=== PATIENT | male | born 1950 | race Caucasian/White ===

== ENCOUNTER 2016-05-10 11:26 | Emergency (ER) | payer OTHER ==
[~2016-05-10] VITALS: Ht 167.6 cm; Wt 75.0 kg
[2016-05-10 11:27] VITALS: BP 138/80; PULSE 98; RESP 18; TEMP 97.8; O2SAT 93
--- NOTE | 2016-05-10 11:55 | PD ---
HPI Chief Complaint: Psychiatric Symptoms Time Seen by Provider: 11:55 Travel History International Travel<30 days: No Contact w/Intl Traveler<30days: No Traveled to known affect area: No History of Present Illness HPI 66-year-old male with history of depression and anxiety presents to the emergency department for evaluation. Patient is followed by Dr. Jarvis. He began increasing his Ziprasidone 2 weeks ago and began having twitching of his lower extremities. He states that the shaking has gotten out of control. He began weaning himself off of this medication. He went to Dr. Jarvis, his new psychiatrist yesterday who advised him to stop the medication and gave him Valium. Patient states that the lower extremity shaking has not stopped and he can no longer stand it. He states it is for left less and he does not want to hurt himself but he cannot tolerate this. It is causing him to have suicidal thoughts with no active plan. Patient states that he needs help. He contacted Dr. Wyatt's office and he was not in. No other symptoms to report at this time. [facility] Past Medical History Anxiety: Yes Depression: Yes Social History Alcohol Use: No Tobacco Use: No Substance Use: No Allergies-Medications (Allergen,Severity, Reaction): Coded Allergies: Penicillin (Verified Allergy, Intermediate, 05/10/16) Review of Systems Except as stated in HPI: all other systems reviewed are Neg Physical Exam Narrative GENERAL: Well-nourished male patient, seemingly anxious but in no acute distress SKIN: Warm and dry. HEAD: Atraumatic. Normocephalic. EYES: Pupils equal and round. No scleral icterus. No injection or drainage. ENT: No nasal bleeding or discharge. Mucous membranes pink and moist. NECK: Trachea midline. No JVD. CARDIOVASCULAR: Elevated rate and rhythm. No murmur appreciated. RESPIRATORY: No accessory muscle use. Clear to auscultation. Breath sounds equal bilaterally. GASTROINTESTINAL: Abdomen soft, non-tender, nondistended. Hepatic and splenic margins not palpable. MUSCULOSKELETAL: No obvious deformities. No clubbing. No cyanosis. No edema. Constant lower extremity shaking. NEUROLOGICAL: Awake and alert. No obvious cranial nerve deficits. Motor grossly within normal limits. Normal speech. PSYCHIATRIC: Bizarre affect Data Data Last Documented VS Vital Signs Date Time Temp Pulse Resp B/P Pulse Ox O2 Delivery O2 Flow Rate FiO2 3/1/17 11:27 97.8 98 18 138/80 93 Room Air Orders Complete Blood Count With Diff (05/10/16 11:48) Basic Metabolic Panel (Bmp) (05/10/16 11:48) Urinalysis - C+S If Indicated (05/10/16 11:48) Psych Screen (05/10/16 11:48) Drug Screen, Random Urine (05/10/16 11:48) Alcohol (Ethanol) (05/10/16 11:48) Iv Access Insert/Monitor (05/10/16 12:57) Diphenhydramine Inj (Benadryl Inj) (05/10/16 13:00) Labs Laboratory Tests Test 05/10/16 12:00 White Blood Count 8.0 TH/MM3 Red Blood Count 4.89 MIL/MM3 Hemoglobin 14.7 GM/DL Hematocrit 43.8 % Mean Corpuscular Volume 89.5 FL Mean Corpuscular Hemoglobin 30.0 PG Mean Corpuscular Hemoglobin 33.5 % Concent Red Cell Distribution Width 13.6 % Platelet Count 211 TH/MM3 Mean Platelet Volume 9.1 FL Neutrophils (%) (Auto) 78.6 % Lymphocytes (%) (Auto) 14.6 % Monocytes (%) (Auto) 6.3 % Eosinophils (%) (Auto) 0.1 % Basophils (%) (Auto) 0.4 % Neutrophils # (Auto) 6.3 TH/MM3 Lymphocytes # (Auto) 1.2 TH/MM3 Monocytes # (Auto) 0.5 TH/MM3 Eosinophils # (Auto) 0.0 TH/MM3 Basophils # (Auto) 0.0 TH/MM3 CBC Comment DIFF FINAL Differential Comment Urine Color YELLOW Urine Turbidity HAZY Urine pH 6.5 Urine Specific [place] 1.017 Urine Protein NEG mg/dL Urine Glucose (UA) NEG mg/dL Urine Ketones NEG mg/dL Urine Occult Blood NEG Urine Nitrite NEG Urine Bilirubin NEG Urine Urobilinogen LESS THAN 2.0 MG/DL Urine Leukocyte Esterase NEG Urine RBC 3 /hpf Urine WBC 1 /hpf Urine Amorphous Sediment OCC Urine Bacteria OCC /hpf Urine Mucus FEW /lpf Microscopic Urinalysis Comment CULT NOT INDICATED Sodium Level 140 MEQ/L Potassium Level 3.9 MEQ/L Chloride Level 106 MEQ/L Carbon Dioxide Level 26.0 MEQ/L Anion Gap 8 MEQ/L Blood Urea Nitrogen 14 MG/DL Creatinine 0.99 MG/DL Estimat Glomerular Filtration 76 ML/MIN Rate Random Glucose 123 MG/DL Calcium Level 9.1 MG/DL Urine Opiates Screen NEG Urine Barbiturates Screen NEG Urine Amphetamines Screen NEG Urine Benzodiazepines Screen POS Urine Cocaine Screen NEG Urine Cannabinoids Screen NEG Ethyl Alcohol Level LESS THAN 3 MG/DL MDM Medical Decision Making Medical Screen Exam Complete: Yes Emergency Medical Condition: Yes Medical Record Reviewed: Yes Differential Diagnosis Mood disorder versus personality disorder versus medication side effect versus adverse effect Narrative Course 66-year-old male presents to emergency department for evaluation. Patient appears without distress. He is seemingly anxious and has a constant leg shake. Workup was initiated in triage. Pending no acute lab abnormality, patient will be medically cleared for psychiatric screening and further evaluation. Mental health screening discussed with the patient. Psychiatric screen ordered. Diagnosis Primary Impression: Anxiety and depression Additional Impressions: Medication adverse effect Qualified Code: T88.7XXA - Medication adverse effect, initial encounter Suicidal thoughts Condition: Stable Yojana Martino May 10, 2016 11:55
[2016-05-10 12:31] LABS: AUTOMATED NEUTROPHIL # 6.3 TH/MM3 (1.8-7.7); BASOPHIL % 0.4 % (0.0-2.0); EOSINOPHIL % 0.1 % (0.0-4.0); HEMATOCRIT 43.8 % (39.0-51.0); HEMO FLAGS DIFF FINAL; LYMPH % 14.6 % (9.0-44.0); LYMPHOCYTE # 1.2 TH/MM3 (1.0-4.8); MEAN CELL VOLUME 89.5 FL (80.0-100.0); MEAN CORPUSCULAR HGB CONC 33.5 % (32.0-36.0); MONO % 6.3 % (0.0-8.0); NEUT % 78.6 % (16.0-70.0); PLATELET COUNT 211 TH/MM3 (150-450); RED BLOOD COUNT 4.89 MIL/MM3 (4.50-5.90); RED CELL DISTRIBUTION WIDTH 13.6 % (11.6-17.2)
[2016-05-10 12:38] LABS: BACTERIA, URINE OCC /hpf; BLOOD, URINE NEG (NEG); COMMENT (UR) CULT NOT INDICATED; CULTURE IF INDICATED CULT NOT INDICATED; GLUCOSE,URINE NEG (NEG); KETONE, URINE NEG (NEG); MUCUS URINE FEW /lpf (OCC); NITRITE,URINE NEG (NEG); PH, URINE 6.5 (5.0-8.5); URINE COLOR YELLOW (YELLW/STRAW)
[2016-05-10 12:52] LABS: AMPHETAMINE, URINE NEG (NEG); ANION GAP 8 MEQ/L (5-15); BARBITURATES, URINE NEG (NEG); BLOOD UREA NITROGEN 14 MG/DL (7-18); CHLORIDE 106 MEQ/L (98-107); COCAINE, URINE NEG (NEG); GLOMERULAR FILTRATION RATE 76 ML/MIN (>89); POTASSIUM 3.9 MEQ/L (3.5-5.1); SODIUM (NA) 140 MEQ/L (136-145)
[2016-05-10] MEDS ORDERED: diphenhydrAMINE HCL 50 MG/ML VIAL IV PUSH ONE (13:00)
--- NOTE | 2016-05-10 13:00 | PD ---
Data Data Last Documented VS Vital Signs Date Time Temp Pulse Resp B/P Pulse Ox O2 Delivery O2 Flow Rate FiO2 05/10/16 11:27 97.8 98 18 138/80 93 Room Air Orders Complete Blood Count With Diff (05/10/16 11:48) Basic Metabolic Panel (Bmp) (05/10/16 11:48) Urinalysis - C+S If Indicated (05/10/16 11:48) Psych Screen (05/10/16 11:48) Drug Screen, Random Urine (05/10/16 11:48) Alcohol (Ethanol) (05/10/16 11:48) Iv Access Insert/Monitor (05/10/16 12:57) Diphenhydramine Inj (Benadryl Inj) (05/10/16 13:00) Labs Laboratory Tests Test 05/10/16 12:00 White Blood Count 8.0 TH/MM3 Red Blood Count 4.89 MIL/MM3 Hemoglobin 14.7 GM/DL Hematocrit 43.8 % Mean Corpuscular Volume 89.5 FL Mean Corpuscular Hemoglobin 30.0 PG Mean Corpuscular Hemoglobin 33.5 % Concent Red Cell Distribution Width 13.6 % Platelet Count 211 TH/MM3 Mean Platelet Volume 9.1 FL Neutrophils (%) (Auto) 78.6 % Lymphocytes (%) (Auto) 14.6 % Monocytes (%) (Auto) 6.3 % Eosinophils (%) (Auto) 0.1 % Basophils (%) (Auto) 0.4 % Neutrophils # (Auto) 6.3 TH/MM3 Lymphocytes # (Auto) 1.2 TH/MM3 Monocytes # (Auto) 0.5 TH/MM3 Eosinophils # (Auto) 0.0 TH/MM3 Basophils # (Auto) 0.0 TH/MM3 CBC Comment DIFF FINAL Differential Comment Urine Color YELLOW Urine Turbidity HAZY Urine pH 6.5 Urine Specific [place] 1.017 Urine Protein NEG mg/dL Urine Glucose (UA) NEG mg/dL Urine Ketones NEG mg/dL Urine Occult Blood NEG Urine Nitrite NEG Urine Bilirubin NEG Urine Urobilinogen LESS THAN 2.0 MG/DL Urine Leukocyte Esterase NEG Urine RBC 3 /hpf Urine WBC 1 /hpf Urine Amorphous Sediment OCC Urine Bacteria OCC /hpf Urine Mucus FEW /lpf Microscopic Urinalysis Comment CULT NOT INDICATED Sodium Level 140 MEQ/L Potassium Level 3.9 MEQ/L Chloride Level 106 MEQ/L Carbon Dioxide Level 26.0 MEQ/L Anion Gap 8 MEQ/L Blood Urea Nitrogen 14 MG/DL Creatinine 0.99 MG/DL Estimat Glomerular Filtration 76 ML/MIN Rate Random Glucose 123 MG/DL Calcium Level 9.1 MG/DL Urine Opiates Screen NEG Urine Barbiturates Screen NEG Urine Amphetamines Screen NEG Urine Benzodiazepines Screen POS Urine Cocaine Screen NEG Urine Cannabinoids Screen NEG Ethyl Alcohol Level LESS THAN 3 MG/DL MDM Supervised Visit with [facility]: Yes Narrative Course This patient had a protocol initiated in triage. He was transferred to the medical pod where I assumed his care. This patient started having uncontrollable shaking of his lower legs after starting Geodon. It's been going on for about 2 weeks. He stopped the medication yesterday He may be having a dystonic reaction, although it doesn't look typical for this. Maybe anxiety related. We discussed options. I placed an IV and gave him a dose of 25 mg IV Benadryl. CBC is normal Metabolic profile is normal Patient thinks that the Benadryl helped somewhat. He got drowsy and dozed off for an hour Patient is is medically stable as can be made right now. He should avoid that medication and can consider using Benadryl every 6 hours as needed and watching for sedation. Disposition will be per psychiatry after screening Diagnosis Primary Impression: Anxiety and depression Additional Impressions: Suicidal thoughts Medication adverse effect Qualified Code: T88.7XXA - Medication adverse effect, initial encounter Condition: Stable Hiren Goodwin MD May 10, 2016 13:00
[2016-05-10 14:00] VITALS: BP 145/81; PULSE 66; RESP 19; O2SAT 99
[2016-05-10] MEDS ORDERED: HYDR-3133 PO (14:30)
[2016-05-10] MEDS ORDERED: FLUT1SPR5 EACH NARE (14:30)
[2016-05-10] MEDS ORDERED: DULO20 PO (14:30)
[2016-05-10] MEDS ORDERED: TIMO0.5S5 EACH EYE (14:30)
[2016-05-10] MEDS ORDERED: VENL37.5 PO (14:30)
[2016-05-10] MEDS ORDERED: ZIPR1CAP6 PO (14:30)
[2016-05-10] MEDS ORDERED: DIAZ2 PO (14:30)
[2016-05-10] MEDS ORDERED: ALFU10TA2 PO (14:30)
[2016-05-10] MEDS ORDERED: ZIPR1CAP8 PO (14:30)
[2016-05-10 15:00] VITALS: BP 119/71; PULSE 62; RESP 18; O2SAT 99
[2016-05-10 16:00] VITALS: BP 130/79; PULSE 101; RESP 18; O2SAT 94
--- NOTE | 2016-05-10 17:37 | PD ---
History of Present Illness Chief Complaint: Psychiatric Symptoms Time Seen by Provider: 17:10 Travel History International Travel<30 Days: No Contact w/Intl Traveler<30days: No Known affected area: No Legal Status Legal Status: Voluntary History of Present Illness: History of Present Illness HPI 66-year-old male on a voluntary status with history of depression and anxiety presents to the emergency department for evaluation. Patient saw Dr.DI Jarvis yesterday and he changed his medication from Effexor to Cymbalta as well as discontinued the Geodon and gave him Valium for treatment of EPS he was experiencing. He began increasing his Ziprasidone 2 weeks ago and began having twitching of his lower extremities. He states that the shaking has gotten out of control.. Patient states that the lower extremity shaking has not stopped and he can no longer stand it. He states it is for left less and he does not want to hurt himself but he cannot tolerate this. It is causing him to have suicidal thoughts with no active plan. Patient states that he needs help. He contacted Dr. Wyatt's office and he was not in. Patient has not had previous contact with [facility]. at bedside. Patient is alert and oriented. he is experiencing EPS with significant akathisia. He reports that he felt better after he receive Benadryl while in [place]. Mood is depressed. He denies current suicidal ideation, intent or plan. I review with him the possible medications which can be causing his symptoms. I have also recommended an inpatient to be able to adjust the medications but he refuses at this time and he does not meet criteria for involuntary admission. His provides support. PFSH Past Medical History Anxiety: Yes Depression: Yes Psychiatric History Psychiatric History Hx Psychiatric Treatment: no hx of inpatietn tx Has been taking Effexor x 10 years. History of Inpatient Treatment: No Guns or firearms in home: No Social History x 41 years. Has worked as a kessler and actor. Hx Alcohol Use: No Hx Tobacco Use: No Hx Substance Use: No Hx of Substance Use Treatment: No Family Psychiatric History cousin committed suicide Allergies-Medications (Allergen,Severity, Reaction): Coded Allergies: Penicillin (Verified Allergy, Intermediate, 05/10/16) Reported Meds & Prescriptions Reported Meds & Active Scripts Active Reported Hydroxyzine HCl 25 Mg Tab 25-50 Mg PO TID PRN Flonase Nasal Douglas (Fluticasone Nasal Douglas) 50 Mcg/Act Douglas 2 Douglas EACH NARE HS Effexor (Venlafaxine HCl) 37.5 Mg Tab 37.5 Mg PO DAILY Alfuzosin ER 24 HR 10 Mg Tab 10 Mg PO BID Cymbalta DR (Duloxetine HCl) 20 Mg Capdr 20 Mg PO DAILY Valium (Diazepam) 2 Mg Tab 2 Mg PO BID Timoptic Opth Drops (Timolol Opth Drops) 0.5 % Soln 1 Drop EACH EYE HS Review of Systems Constitutional: COMPLAINS OF: Weight loss Endocrine: DENIES: Heat/cold intolerance, Polydipsia, Polyuria, Polyphagia Eyes: COMPLAINS OF: Vision loss Ears, nose, mouth, throat: DENIES: Tinnitus, Hearing loss, Vertigo, Nasal discharge, Oral lesions, Throat pain, Hoarseness, Ear Pain, Running Nose, Epistaxis, Sinus Pain, Toothache, Odynophagia Respiratory: DENIES: Apneas, Cough, Snoring, Wheezing, Hemoptysis, Sputum production, Shortness of breath Cardiovascular: DENIES: Chest pain, Palpitations, Syncope, Dyspnea on Exertion , PND, Lower Extremity Edema, Orthopnea, Claudication Gastrointestinal: DENIES: Abdominal pain, Black stools, Bloody stools, Constipation, Diarrhea, Nausea, Vomiting, Difficulty Swallowing, Anorexia Genitourinary: DENIES: Sexual dysfunction, Urinary frequency, Urinary incontinence, Urgency, Hematuria, Dysuria, Nocturia, Penile Discharge, Testicular Pain, Testicular Swelling Musculoskeletal: COMPLAINS OF: Stiffness Integumentary: DENIES: Abnormal pigmentation, Nail changes, Pruritus, Rash Hematologic/lymphatic: DENIES: Bruising, Lymphadenopathy Immunologic/allergic: DENIES: Eczema, Urticaria Psychiatric: COMPLAINS OF: Depression Exam Alert: Yes [place]: Person (ox4) Mood: Anxious, Depressed Affect: Other (congruent ) Speech: Clear, Logical Eye Contact: Normal Memory Intact: Comment (no impairment) Hallucinations: Other (negative) Delusions: No Suicidal: Ideation (deneis any) Homicidal: Ideation (deneis any) Insight/Judgement Fair. Not impaired MDM Medical Decision Making Medical Record Reviewed: Yes Assessment/Plan I have met with patient and his . I offered inpatient hospitalization for medication adjustment. He has refused at this time. He does not meet criteria for involuntary admission . I have recommended Benadryl for side effects. I have also recommended hold the Cymbalta until he sees Dr. Stovall tomorrow. He will contact his outpatient psychiatrist tomorrow. Orders Complete Blood Count With Diff (05/10/16 11:48) Basic Metabolic Panel (Bmp) (05/10/16 11:48) Urinalysis - C+S If Indicated (05/10/16 11:48) Psych Screen (05/10/16 11:48) Drug Screen, Random Urine (05/10/16 11:48) Alcohol (Ethanol) (05/10/16 11:48) Iv Access Insert/Monitor (05/10/16 12:57) Diphenhydramine Inj (Benadryl Inj) (05/10/16 13:00) Results Vital Signs Date Time Temp Pulse Resp B/P Pulse Ox O2 Delivery O2 Flow Rate FiO2 05/10/16 16:00 101 18 130/79 94 Room Air 05/10/16 11:27 97.8 98 18 138/80 93 Room Air Laboratory Tests Test 05/10/16 12:00 White Blood Count 8.0 Red Blood Count 4.89 Hemoglobin 14.7 Hematocrit 43.8 Mean Corpuscular Volume 89.5 Mean Corpuscular Hemoglobin 30.0 Mean Corpuscular Hemoglobin 33.5 Concent Red Cell Distribution Width 13.6 Platelet Count 211 Mean Platelet Volume 9.1 Neutrophils (%) (Auto) 78.6 Lymphocytes (%) (Auto) 14.6 Monocytes (%) (Auto) 6.3 Eosinophils (%) (Auto) 0.1 Basophils (%) (Auto) 0.4 Neutrophils # (Auto) 6.3 Lymphocytes # (Auto) 1.2 Monocytes # (Auto) 0.5 Eosinophils # (Auto) 0.0 Basophils # (Auto) 0.0 CBC Comment DIFF FINAL Differential Comment Urine Color YELLOW Urine Turbidity HAZY Urine pH 6.5 Urine Specific [place] 1.017 Urine Protein NEG Urine Glucose (UA) NEG Urine Ketones NEG Urine Occult Blood NEG Urine Nitrite NEG Urine Bilirubin NEG Urine Urobilinogen LESS THAN 2.0 Urine Leukocyte Esterase NEG Urine RBC 3 Urine WBC 1 Urine Amorphous Sediment OCC Urine Bacteria OCC Urine Mucus FEW Microscopic Urinalysis Comment CULT NOT INDICATED Sodium Level 140 Potassium Level 3.9 Chloride Level 106 Carbon Dioxide Level 26.0 Anion Gap 8 Blood Urea Nitrogen 14 Creatinine 0.99 Estimat Glomerular Filtration 76 Rate Random Glucose 123 Calcium Level 9.1 Urine Opiates Screen NEG Urine Barbiturates Screen NEG Urine Amphetamines Screen NEG Urine Benzodiazepines Screen POS Urine Cocaine Screen NEG Urine Cannabinoids Screen NEG Ethyl Alcohol Level LESS THAN 3 Diagnosis Primary Impression: Medication adverse effect Additional Impression: depression Ruled Out: Suicidal thoughts Psychiatrically Cleared: Yes Med/ Other Pt Specific Info: Existing Med Changed Disposition: 01 DISCHARGE HOME Condition: Stable Problem Qualifiers Primary Impression: Medication adverse effect Qualified Code: T88.7XXA - Medication adverse effect, initial encounter Jessy Hwang May 10, 2016 17:37
== END 2016-05-10 18:25 | disposition home or self-care (01) ==
LOC: NEPA 11:26
DX: G25.71 Drug induced akathisia (principal); T50.905A Adverse effect of unspecified drugs, medicaments and biological substances, initial encounter; F32.9 Major depressive disorder, single episode, unspecified
CPT/HCPCS: 80048; 80307; 80320; 81001; 85025; 96374; 99284; J1200